=== PATIENT | female | born 1985 | race Caucasian/White ===

== ENCOUNTER 2023-01-19 12:27 | Emergency (ER) | payer BC, SELFPAY ==
[2023-01-19 12:44] VITALS: BP 122/82; PULSE 83; RESP 18; O2SAT 98; BMI 28.3
--- NOTE | 2023-01-19 12:52 | ED_ITS ---
HPI - General Adult General Time Seen by Provider: 12:52 Date Seen: 01/19/23 Chief complaint: Unspecified Complaint, Adult Stated complaint: extreme pain Time Seen by Provider: 01/19/23 12:51 History of Present Illness HPI narrative: 37-year-old female with a history of ulcerative colitis presents to the ER today with her with concern for rectal pain. She had developed a thrombosed external hemorrhoid recently. She was seen yesterday in the urgent care and apparently had an incision and with a partial clot extraction. She came back to the urgent care today with uncontrolled pain. She was still found to have a fairly large hemorrhoid with a fair amount of clot. She underwent a 2nd procedure today by Dr. Santiago in the urgent care in [place]. He administered local anesthesia with lidocaine with epi. made an a excision then took out a large amount clot. She was discharged from the Urgent Care with a prescription for Percocet sent electronically to the pharmacy at [facility] in [place]. However while she was in the car on the way home, less than half an hour after leaving the clinic, her local anesthesia wore off and she develops severe burning rectal pain. She felt like the pain was out of proportion for what she expected so came directly here to the ER. She did not have time to go to the pharmacy to fill a prescription. She is not having any other pain. No abdominal pain. No bleeding. No fever. Dr. Santiago called me on the phone. He gave me an update that he did make a more aggressive excision/clot extraction today than was done yesterday but he would have expected this to heal. He would not have expected that this degree of postoperative pain. He notes that there is still a skin tag there and that the patient may ultimately need outpatient follow-up with general surgery to have the excess tissue excised. Related Data Home Medications Medication Instructions Recorded Confirmed folic acid 400 mcg tablet 0.4 mg PO QDAY 01/18/23 01/19/23 hydrocortisone acetate 25 mg 25 mg ME BID 01/18/23 01/19/23 rectal suppository (Anucort-HC) loratadine 10 mg tablet 10 mg PO QDAY 01/18/23 01/19/23 prednisone 5 mg tablet 5 mg PO BID 01/18/23 01/19/23 sulfasalazine 500 mg 2,000 mg PO BID 01/18/23 01/19/23 tablet,delayed release Previous Rx's Medication Instructions Recorded oxycodone 5 mg tablet 5 mg PO Q6H PRN pain #20 tabs 01/19/23 Allergies Allergy/AdvReac Type Severity Reaction Status Date / Time No Known Drug Allergies Allergy Verified 01/19/23 10:03 Exam Narrative: Exam Narrative: Constitutional: Appears well-developed and well-nourished. Alert. Conversant. Non toxic. HENT: Head: Atraumatic. Nose: Nose normal. Mouth/Throat: Oral mucosa is clear and moist. no trismus. Eyes: Conjunctivae normal. EOM normal. Pupils equal, round, and reactive to light. No scleral icterus. Neck: Normal range of motion. Neck supple. No tracheal deviation present. Cardiovascular: Normal rate, regular rhythm. Pulmonary/Chest: Effort normal. No stridor. No respiratory distress. Abdominal: Soft. No distension. No mass. No tenderness. No rebound. No guarding. Rectal: Performed with female butting saw operator. She has a 2 x 3 cm ovoid external hemorrhoid. There is roughly a 2 cm linear incision on the upper surface of the hemorrhoid. It appears as though clots have been extracted. No active bleeding. I do not see much visual retained clots at this time. No surrounding erythema. No purulent drainage. No active bleeding. Internal rectal exam deferred due to discomfort. After topical anesthesia with 2% lidocaine, an minimal improvement in pain. After local injection of 5 mL of 0.25% bupivacaine, good anesthesia achieved. Musculoskeletal: RUE: Normal range of motion. No tenderness. No deformity LUE: Normal range of motion. No tenderness. No deformity RLE: Normal range of motion. No edema. No tenderness. No deformity LLE: Normal range of motion. No edema. No tenderness. No deformity Lymph: No cervical adenopathy. Neurological: Alert and oriented to person, place, and time. Normal strength. CN II-VII intact. No sensory deficit. GCS eye subscore is 4. GCS verbal subscore is 5. GCS motor subscore is 6. Normal coordination Skin: Skin is warm and dry. No rash noted. No pallor. Normal capillary refill. Psychiatric: Normal mood. Normal affect. Const: Vital Signs, click to edit/add: Vital Signs - 24 hr 01/19/23 12:44 01/19/23 14:06 Pulse Rate 81 Pulse Rate [Right Pulse Oximeter] 83 Respiratory Rate 18 20 Blood Pressure 117/74 Blood Pressure [Ri ght Upper Arm] 122/82 Pulse Oximetry 98 98 Oxygen Delivery Me thod Room Air Course Vital Signs Vital signs: Initial Vital Signs Temperature Source Temporal Artery Scan 01/19/23 12:44 Pulse Rate 83 01/19/23 12:44 Respiratory Rate 18 01/19/23 12:44 Blood Pressure 122/82 01/19/23 12:44 Blood Pressure Mean 95 01/19/23 12:44 Blood Pressure Position Sitting 01/19/23 12:44 Pulse Oximetry 98 01/19/23 12:44 Oxygen Delivery Method Room Air 01/19/23 12:44 Vital Signs Pulse Rate 83 01/19/23 12:44 Respiratory Rate 18 01/19/23 12:44 Blood Pressure 122/82 01/19/23 12:44 Pulse Oximetry 98 01/19/23 12:44 Oxygen Delivery Method Room Air 01/19/23 12:44 Pulse Rate 81 01/19/23 14:06 Respiratory Rate 20 01/19/23 14:06 Blood Pressure 117/74 01/19/23 14:06 Pulse Oximetry 98 01/19/23 14:06 Oxygen Delivery Method Room Air 01/19/23 12:44 Medical Decision Making MDM Narrative Medical decision making narrative: 37-year-old female with a history of UC presents to the ER today after being seen in the clinic this morning for thrombosed external hemorrhoid. She had incision and clot extraction done in clinic and came to the ER because of uncontrolled pain after local anesthetic wore off. She had not been able to get to her pharmacy to fill her oxycodone prescription. Here in the ER she does have evidence for an ongoing hemorrhoid. No obvious evidence for recurrent thrombosis and no evidence for any other infection, perirectal abscess, or any clear other complication. She did not achieve much analgesia from topical lidocaine. We were able to give her pain relief with repeat low confirm infiltration of local anesthetic-5 mL of 0.25% bupivacaine. Sterile prep and technique were used. Were able to get through to the surgeon in surgery clinic. She will need outpatient follow-up in the clinic and likely will need a definitive hemorrhoid surgery. She has an appointment [facility] surgery Clinic in 2 days on 01/21 at 9:00 a.m.. Discussed pain management at home with stool softeners, Sitz baths, opiates as needed. She understands opiate precautions. Questions answered. Discharge Plan Discharge Clinical Impression: Thrombosed external hemorrhoid Patient Disposition: Home, Self-Care Instructions: Hemorrhoids (DC) Additional Instructions: Please perform your soaks and Sitz baths as recommended by Dr. Santiago. Yours Percocet if needed for pain. Be careful because Percocet can cause drowsiness, dizziness, and can be addictive. Use stool softeners to keep her stool soft. You have an appointment on Sunday 01/21 at 9:00 a.m. in the surgery Clinic here at [facility] with Dr. Martinez. Prescriptions: No Action hydrocortisone acetate [Anucort-HC] 25 mg suppository 25 mg ME BID sulfasalazine 500 mg tablet,delayed release (DR/EC) 2,000 mg PO BID prednisone 5 mg tablet 5 mg PO BID folic acid 400 mcg tablet 0.4 mg PO QDAY loratadine 10 mg tablet 10 mg PO QDAY oxycodone 5 mg tablet 5 mg PO Q6H PRN (Reason: pain) Qty: 20 0RF Follow Up/Referrals: Provider,Not a Local [Primary Care Provider] - Stand Alone Forms: fintonic Info Instructions
[2023-01-19] MEDS: lidocaine HCL 2 % JELLY (TOP) STERILE 6 ML TOPICAL (13:44)
[2023-01-19] MEDS: OxyCODONE/APAP 5-325 TABLET 1 TAB PO (14:05)
[2023-01-19 14:06] VITALS: BP 117/74; PULSE 81; RESP 20; O2SAT 98
[2023-01-19] MEDS: BUPIVACAINE 0.25% 30 ML 5 ML INJECTION ×2 (14:36→14:49)
== END 2023-01-19 14:44 | disposition home or self-care (01) ==
PROVIDERS: Emergency Provider Emergency Medicine
DX: K64.5 Perianal venous thrombosis (principal)
CPT/HCPCS: 99283; 99284; A9270; J0665

== ENCOUNTER 2023-01-22 12:18 | Day surgery (SDC) | payer BC, SELFPAY ==
[2023-01-22] VITALS (11 sets, daily range): BP systolic 103–125; BP diastolic 61–86; PULSE 60–84; RESP 12–20; TEMP 36.4–37.1; O2SAT 96–100; BMI 28.7
[2023-01-22 12:39] LABS: Ur HCG Qualitative* Negative (Negative)
[2023-01-22] MEDS: LACTATED RINGERS 1000 ML 1,000 ML 100 ML IV ×2 (12:55→13:44)
--- NOTE | 2023-01-22 13:02 | W.ANESCHARGE ---
Anesthesia Charges Start Date/Time Anesthesia Start Date: 01/22/23 Anesthesia Start Time: 13:26 Stop Date/Time Anesthesia Stop Date: 01/22/23 Anesthesia Stop Time: 14:11
[2023-01-22] MEDS: BUPIVACAINE 0.25% 30 ML INJECTION (13:59)
[2023-01-22] MEDS: BUPIVACAINE LIPOSOME 133 MG/10 ML INJ INFILTRATI (13:59)
--- NOTE | 2023-01-22 14:07 | PM.GSPRC ---
Operative Note Pre-op diagnosis: 1. Thrombosed external hemorrhoid x2 s/p I&D x2. Post-op diagnosis: Same Type of Procedure: 1. 2 quadrant hemorrhoidectomy. Indications: 37-year-old female with history of ulcerative colitis was seen in clinic with perianal pain that started approximately 3-4 days ago. Patient's pain was getting increasingly more severe and she presented to urgent care. At urgent care she was diagnosed with a thrombosed hemorrhoid and underwent I&D with clot removal. Postprocedure her pain was getting increasingly worse and the following day she presented to her primary care doctor for follow-up. Her primary care doctor repeated her I&D and removed more clot from a thrombosed hemorrhoid. Postprocedure patient continued to have a lot of pain and the pain was severe that she needed to take narcotic pain medication. She was then seen in our surgery clinic. On clinical exam she was found to have a dillon sized thrombosed external hemorrhoid anterior midline with visible I&D incision. This is edematous and contained clot. There were no areas of necrosis or ulceration. There is also a smaller thrombosed external hemorrhoid left posterior laterally. Given patient's clinical history and her physical exam, conservative approach versus external hemorrhoidectomy were discussed with the patient. The procedure was discussed in detail, and the risks associated procedure including infection, bleeding, temporary incontinence, and future recurrence of hemorrhoids were all discussed with the patient. Patient elected to proceed with 2 quadrant hemorrhoidectomy. Procedure Description: After discussing the risks and benefits of the procedure, the patient signed informed consent.? The patient was brought to the operating room. Spinal anesthesia was administered patient was then placed on the operating table in prone position with all pressure points padded. The operative site was then prepped and draped in the usual sterile fashion.? A time-out was then performed. Perianal skin was examined and revealed a thrombosed hemorrhoid anterior midline that was approximately 1.5 x 1 cm and a smaller pea-sized thrombosed hemorrhoid left posterior laterally. Digital rectal exam and anoscopy were also done and revealed mucus and bloody fluid in the anal canal. There were mild mucosal ulcerations noted in the anal canal. We then proceeded with 2 quadrant hemorrhoidectomy. I first started with anterior midline hemorrhoidectomy. An elliptical incision was made with a needle tip electrocautery from the anoderm up into the anal canal just above the dentate line. Careful dissection of the hemorrhoid complex was done in the plane between the internal anal sphincter and the submucosal vascular plexus up to just above the dentate line in each quadrant described above. Small clots and edema were noted in submucosal plexus. Having established the proper plane, the hemorrhoidal tissue was then excised with the Ligasure device and sent to Pathology for analysis. Care was taken to preserve mucosa for a tension-free closure. The internal sphincter fibers were visualized at the base of the wound and were intact. The wound was closed in a running locked manner starting at the apex (proximal aspect of elliptical excision) with 3-0 chromic suture, coming out to the anoderm and then running back up in a simple fashion and tying down at the apex. Hemostasis was excellent. The external hemorrhoid was similarly excised left posterior laterally. The incision was closed with a running 3-0 chromic suture. Hemostasis was achieved with pressure. A mixture of Exparel and Marcaine was then injected for bilateral pudendal nerve block and around surgical incisions. Sterile dressings were then applied outside of the anus. ? The patient was then woken and transported to the recovery area in stable condition. ? The patient tolerated the procedure well. Findings: Thrombosed external hemorrhoids with clot in submucosal plexus. Anesthesia: local and spinal Surgeon: Cheryl Duran MD Estimated blood loss (mL): 5 Condition: stable Disposition: PACU Date of procedure: 01/22/23
--- NOTE | 2023-01-22 14:12 | W.ANESCHARGE ---
Anesthesia Charges Start Date/Time Anesthesia Start Date: 01/22/23 Anesthesia Start Time: 13:26 Stop Date/Time Anesthesia Stop Date: 01/22/23 Anesthesia Stop Time: 14:11
[2023-01-22] MEDS: OXYCODONE 5 MG TABLET PO (15:34)
== END 2023-01-22 15:38 | disposition home or self-care (01) ==
PROVIDERS: Visit Provider Surgery
PROC: (CPT 46320; principal; 2023-01-22 13:30)
DX: K64.5 Perianal venous thrombosis (principal); K62.89 Other specified diseases of anus and rectum
CPT/HCPCS: 46320; 00902; 81025; 88304; A9270; C9290; J0665; J1100; J2250; J2405; J2704; J3010; J7120

== ENCOUNTER 2023-11-20 15:39 | Outpatient (CLI) | payer BC, SELFPAY ==
--- OUTSIDE RECORDS SUMMARY | 2023-11-20 15:42 | XMS_ITS | Clinical Summary ---
Author Organization [employer] Address [place], [place] [address] Care Team Providers Care Setup Operator Name Role Phone Pcp, No Primary Care Provider Unavailabl e Allergies Active Allergy Reactions Criticality Noted Date Comments Blood-Group Specific Substance Other - Describe In Comment Field 02/28/2014 Patient has probable passive anti-D. Blood product orders may be delayed. Draw 1 red and 2 purple tubes for all Type and Screen/ RBC product orders. Medications Medication Sig Dispensed Refills Start Date End Date Status multivitamin-folic acid 0.4 mg (MULTIPLE VITAMINS DAILY) tablet Take 1 tablet by mouth once daily. Active Dapsone 5 % topical gel Apply topically to affected area(s). 01/28/2017 Active Doxycycline Monohydrate (VIBRAMYCIN) 50 mg capsule Take by mouth. 07/31/2017 Active folic acid 1 mg tablet Take 1 tablet by mouth. 03/05/2017 Active sulfaSALAzine (AZULFIDINE EN-TAB) 500 mg extended-release tablet Take 2,000 mg by mouth. 02/05/2018 Active Active Problems Problem Noted Date Diagnosed Date Missed 02/24/2014 care and examination of lactating mot her 08/15/2011 Normal delivery 08/14/2011 Supervision of normal first 08/14/2011 Resolved Problems Problem Noted Date Diagnosed Date Resolved Date Missed 04/17/2010 08/15/2011 Immunizations Name Administration Dates Next Due AMB Influenza, IIV4 PF (=>6 mos Flulaval,Fluzone Fluarix)(Flu Clinic Only) 03/02/2019 Influenza, IIV4 03/02/2023,01/03/2022 Social History Tobacco Use Types Packs/Day Years Used Date Smoking Tobacco: Never Smokeless Tobacco: Never Tobacco Cessation:Counseling Given: Yes Alcohol Use Standard Drinks/Week Comments No 0 (1 standard drink = 0.6 oz pur e alcohol) Sex and Gender Information Value Date Recorded Sex Assigned at Not on file Gender Identity Not on file Sexual Orientation Not on file Obstetrics History Para Term AB IAB SAB Ectopic Multiple Livin g Live Births 2 1 1 1 0 1 0 0 1 1 Date Outcome GA Total Labor Labor/2nd/3rd Weight Sex Type Anes PTL Jenni A1 A5 Name Clin 0 SAB 10w 0d SPONTA NEOUS Genera l N Decea sed 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:D & C 2011 Term 41w 0d 3.28 kg (7 lb 3.7 oz) F Vag 8 9 PRYTZ ,BABY GIRL Delivery Location:[facility] Last Filed Vital Signs Vital Sign Reading Time Taken Comments Blood Pressure 121/80 07/22/2018 11:02 AM CDT Pulse 77 07/22/2018 11:02 AM CDT Temperature 36.6 ??C (97.8 ??F) 02/26/2018 1:54 PM CD T Respiratory Rate 14 02/26/2018 1:54 PM CDT Oxygen Saturation 96% 07/22/2018 11:02 AM CDT Inhaled Oxygen Concentration - - Weight 76.7 kg (169 lb 1.6 oz) 07/22/2018 11:02 AM CDT Height 158.8 cm (5' 2.5) 02/26/2018 1:54 PM CDT Body Mass Index 30.44 02/26/2018 1:54 PM CDT Plan of Treatment Health Maintenance Due Date Last Done Comments Tdap 1996 Depression screening for age 12+ 1997 HIV for age 15-65 2000 Hepatitis C screening for ag e 18-79 2003 Tetanus booster 2005 Pap test for age 21-65 2006 BMI (ht and wt on same day) for age 18+ 02/26/2019 02/26/2018 COVID-19 vaccine series ( season) 2022 03/18/2021, 08/17/2020, 07/20/2020 Influenza for age 9-49 12/27/2023 , 01/03/2022, 03/02/2019 Pneumococcal series for age 6-64 Aged Out No longer eligible b ased on patient's age to complete this topic Advance Directives * Full Code (Latest Code Status on File) Date Activated Date Inactivated Comments 02/28/2014 7:54 AM 02/28/2014 1:39 PM * Full Code Date Activated Date Inactivated Comments 02/04/2013 1:42 PM 02/05/2013 2:29 AM * Full Code Date Activated Date Inactivated Comments 08/14/2011 8:10 AM 08/16/2011 4:54 PM * Full Code Date Activated Date Inactivated Comments 08/13/2011 8:16 AM 08/14/2011 8:10 AM * Full Code Date Activated Date Inactivated Comments 08/13/2011 8:14 AM 08/13/2011 8:16 AM Care Teams Setup Operator Relationship Specialty Start Date End Date Pcp, No . PCP - General 03/02/23
--- OUTSIDE RECORDS SUMMARY | 2023-11-20 15:42 | XMS_ITS | Continuity of Care Document ---
Author Organization [facility] Address [address] [address] [place] [address] Phone Care Team Providers Care Paper Supervisor Name Role Phone Edstrom Mary ESPARZA Unavailable Unavailable Allergies, Adverse Reactions, Alerts Substance Reaction Status Criticality No Known Allergies Active No Inform ation Medications Medication Instructions Dosage Effective Dates (start - stop) Status Comments Remicade 100 mg intravenous solution Administer Remicade 10mg/kg every four weeks, infuse by IV route - Active Claritin 10 mg tablet take 1 tablet by O RAL route every day as needed 10 MG - Active Procedures Procedure Date Remicade Per 10 Mg IV Infusion Up To 1 Hour Routine Serum Collection Remicade Per 10 Mg IV Infusion Up To 1 Hour Routine Serum Collection IV Infusion Up To 1 Hour Remicade Per 10 Mg Routine Serum Collection Offic/outpt E&m Estab Mod-hi 2 Remicade Per 10 Mg IV Infusion Up To 1 Hour Remicade Per 10 Mg Remicade Per 10 Mg IV Infusion Up To 1 Hour Remicade Per 10 Mg IV Infusion Up To 1 Hour Offic/outpt E&m Estab Low-mod Remicade Per 10 Mg IV Infusion Up To 1 Hour IV Infusion Up To 1 Hour Each Additional Hour Remicade Per 10 Mg Remicade Per 10 Mg Remicade Per 10 Mg Remicade Per 10 Mg IV Infusion Up To 1 Hour Each Additional Hour Remicade Per 10 Mg Remicade Per 10 Mg IV Infusion Up To 1 Hour Each Additional Hour Venofer Iv Infus Therap/dx-by Phys; To Venofer Iv Infus Therap/dx-by Phys; To Venofer Iv Infus Therap/dx-by Phys; To Venofer Iv Infus Therap/dx-by Phys; To Venofer Iv Infus Therap/dx-by Phys; To Routine Serum Collection Established Level 4 Routine Serum Collection Colonoscopy Flex; W/bx 1/mx Level Iv-surg Path Gross/micro cancelled appt Routine Serum Collection Established Level 3 Routine Serum Collection Routine Serum Collection Iv Infus Therap/dx-by Phys; To Venofer Iv Infus Therap/dx-by Phys; To Venofer Iv Infus Therap/dx-by Phys; To Venofer Iv Infus Therap/dx-by Phys; To Venofer Established Level 3 Colonoscopy Flex; Dx (sep Pro) Routine Serum Collection Iron Iron Binding Capacity Routine Serum Collection C-reactive Prot Comp Metabolic Panel Bld Ct; Hg/pltlt Ct Auto/compl Offic/outpt E&m New Mod Sever New Level 3 Advance Directives Directive Yes / No Effective Date File Name No Information Encounters Encounter Description Practice Location Reason(s) For Visit Diagnoses Date Provider Providers Copied on Encounter [facility], [address] [address], [place], [id number], [place] tel:[phone] [facility] No Information 4 Domenica Hernandez. [address], [id number], [place]. tel:[phone] [facility], [address] [address], [place], [address], [place] tel:[phone] [facility] [place] Ulcerative colitis, unspecified, without complications 4 Deborah Loaiza. [address], [id number], [place]. tel:[phone] Referring Provider: Referral Self, USE FOR SELF REFERRALS. [facility], [address] [address], [place], [address], [place] tel:[phone] [facility] Ulcerative colitis, unspecified, without complicationsE levation of levels of liver transaminase levels 4 Jimmy Jiang. [address], [id number], [place]. tel:[phone] Referring Provider: Referral Self, USE FOR SELF REFERRALS. [facility], [address] [address], [place], [address], [place] tel:[phone] [facility] [place] Ulcerative colitis, unspecified, without complications 4 Jimmy Jiang. [address], [id number], [place]. tel:[phone] [facility], [address] [address], [place], [address], [place] tel:[phone] [facility] Elevated transaminase level 4 Jimmy Jiang. [address] [place] [address], [id number], [place]. tel:[phone] [facility], [address] [address], [place], [address], [place] tel:[phone] [facility] [place] Ulcerative colitis, unspecified, without complications 4 Geronimo Young. [address] [place] [address], [id number], [place]. tel:[phone] Referring Provider: Referral Self, USE FOR SELF REFERRALS. [facility], [address] [address], [place], [address], [place] tel:[phone] [facility] Ulcerative colitis, unspecified, without complications 4 Jimmy Jiang. [address] [place] [address], [id number], [place]. tel:[phone] Referring Provider: Referral Self, USE FOR SELF REFERRALS. [facility], [address] [address], [place], [address], [place] tel:[phone] [facility] Ulcerative colitis, unspecified, without complications 4 Jimmy Jiang. [address] [place] [address], [id number], [place]. tel:[phone] [facility], [address] [address], [place], [address], [place] tel:[phone] [facility] [place] Ulcerative colitis, unspecified, without complications 4 Estella Padron [address] [place] [address], [id number], [place]. tel:[phone] Referring Provider: Referral Self, USE FOR SELF REFERRALS. [facility], [address] [address], [place], [id number], [place] tel:[phone] [facility] No Information August- 4 Jimmy Jiang. 3001 [facility], [address], [id number], [place]. tel:[phone] Referring Provider: Referral Self, USE FOR SELF REFERRALS. [facility], [address] [address], [place], [id number], [place] tel:[phone] [facility] [place] Ulcerative colitis, unspecified, without complications August- 0 4 Jimmy Jiang. [address] [place] [address], [id number], [place]. tel:[phone] Offic/outpt E&m Estab Mod-hi 2 [facility], [address] [address], [place], [id number], [place] tel:[phone] [facility] GI Symptoms or Concerns (chief complaint) Additional Narrative (chief complaint) Ulcerative (chronic) proctitis without complicationsR ectal bleeding Apr-3 0 4 Edwin Putnam. [address] [place] [address], [id number], [place]. tel:[phone] Referring Provider: Referral Self, USE FOR SELF REFERRALS. [facility], [address] [address], [place], [id number], [place] tel:[phone] [facility] [place] Ulcerative colitis, unspecified, without complications Jul-2 4 Carlos Hampton. [address] [place] [address], [id number], [place]. tel:[phone] Referring Provider: Referral Self, USE FOR SELF REFERRALS. [facility], [address] [address], [place], [id number], [place] tel:[phone] [facility] [place] Ulcerative colitis, unspecified, without complications Apr- 4 Jimmy Jiang. [address] [place] [address], [id number], [place]. tel:[phone] [facility], [address] [address], [place], [address], [place] tel:[phone] [facility] [place] Ulcerative colitis, unspecified, without complications 4 Jimmy Jiang. [address]001 [facility], [address], [id number], [place]. tel:[phone] Referring Provider: Referral Self, USE FOR SELF REFERRALS. [facility], [address] [address], [place], [id number], [place] tel:[phone] [facility] [place] Ulcerative colitis, unspecified, without complications 4 Jimmy Jiang. [address] [place] [address], [id number], [place]. tel:[phone] [facility], [address] [address], [place], [id number], [place] tel:[phone] [facility] [place] Ulcerative colitis, unspecified, without complications 4 Hammad Dubose. [address], [id number], [place]. tel:[phone] Referring Provider: Referral Self, USE FOR SELF REFERRALS. [facility], [address] [address], [place], [address], [place] tel:[phone] [facility] [place] Ulcerative colitis, unspecified, without complications 4 Jimmy Jiang. 3001 [facility], [address], [id number], [place]. tel:[phone] Offic/outpt E&m Estab Low-mod [facility], [address] [address], [place], [address], [place] tel:[phone] [facility] GI Symptoms or Concerns (chief complaint) Additional Narrative (chief complaint) Ulcerative colitis, unspecified, without complications b0 4 Jimmy Jiang. [address] [place] [address], [id number], [place]. tel:[phone] Referring Provider: Referral Self, USE FOR SELF REFERRALS. [facility], [address] [address], [place], [address], [place] tel:[phone] [facility] [place] Ulcerative colitis, unspecified, without complications 4 Unique Lau. 3001 [facility], [facility] [address], [place], [address], [place]. tel:[phone] Referring Provider: Referral Self, USE FOR SELF REFERRALS. [facility], [address] [address], [place], [id number], [place] tel:[phone] [facility] [place] Ulcerative colitis, unspecified, without complications 4 Jimmy Jiang. [address]001 [facility], [address], [id number], [place]. tel:[phone] [facility], [address] [address], [place], [address], [place] tel:[phone] [facility] Ulcerative colitis, unspecified, without complications 4 Jimmy Jiang. [address] [facility], [facility] [address], [place], [id number], [place]. tel:[phone] [facility], [address] [address], [place], [address], [place] tel:[phone] [facility] [place] Ulcerative colitis, unspecified, without complications 4 Francis Burleson. [address] [facility], [facility] [address], [place], [id number], [place]. tel:[phone] Referring Provider: Referral Self, USE FOR SELF REFERRALS. [facility], [address] [address], [place], [address], [place] tel:[phone] [facility] [place] Ulcerative colitis, unspecified, without complications 3 Jimmy Jiang. [address] [facility], [facility] [address], [place], [id number], [place]. tel:[phone] [facility], [address] [address], [place], [id number], [place] tel:[phone] [facility] [place] Ulcerative colitis, unspecified, without complications 3 Robert Artis. [address] [place] [address], [address], [id number], [place]. tel:[phone] Referring Provider: Referral Self, USE FOR SELF REFERRALS. [facility], [address] [address], [place], [address], [place] tel:[phone] [facility] [place] Ulcerative colitis, unspecified, without complications 3 Jimmy Jiang. [address] [place] [address], [id number], [place]. tel:[phone] [facility], [address] [address], [place], [id number], [place] tel:[phone] [facility] [place] Ulcerative colitis, unspecified, without complications 3 Janis Baer. [address] [place] [address], [id number], [place]. tel:[phone] Referring Provider: Referral Self, USE FOR SELF REFERRALS. [facility], [address] [address], [place], [address], [place] tel:[phone] [facility] [place] Ulcerative colitis, unspecified, without complications 3 Jimmy Jiang. [address] [place] [address], [id number], [place]. tel:[phone] [facility], [address] [address], [place], [id number], [place] tel:[phone] [facility] [place] Iron deficiency anemia, unspecified 3 Jimmy Jiang. [address] [place] [address], [id number], [place]. tel:[phone] [facility], [address] [address], [place], [address], [place] tel:[phone] [facility] [place] Iron deficiency anemia, unspecifiedUlc erative colitis, unspecified, without complications Nov-0 1-202 3 Geronimo Young. [address] [place] [address], [id number], [place]. tel:[phone] Referring Provider: Referral Self, USE FOR SELF REFERRALS. [facility], [address] [address], [place], [address], [place] tel:[phone] [facility] [place] Iron deficiency anemia, unspecified Oct-3 0-202 3 Guerrero Cramer. [address] [place] [address], [id number], [place]. tel:[phone] Referring Provider: Referral Self, USE FOR SELF REFERRALS. [facility], [address] [address], [place], [address], [place] tel:[phone] [facility] [place] Iron deficiency anemia, unspecified Oct-2 7- 3 Hoa Mckeon. [address] [place] [address], [id number], [place]. tel:[phone] Referring Provider: Referral Self, USE FOR SELF REFERRALS. [facility], [address] [address], [place], [id number], [place] tel:[phone] [facility] [place] Iron deficiency anemia, unspecified Oct-2 5- 3 Carlos Hampton. [address] [place] [address], [id number], [place]. tel:[phone] Referring Provider: Referral Self, USE FOR SELF REFERRALS. [facility], [address] [address], [place], [address], [place] tel:[phone] [facility] [place] Iron deficiency anemia, unspecified Oct-2 3-202 3 Chase Young. [address] [place] [address], [id number], [place]. tel:[phone] Referring Provider: Referral Self, USE FOR SELF REFERRALS. [facility], [address] [address], [place], [address], [place] tel:[phone] [facility] Iron deficiency anemia, unspecified Jan- 0- 3 Jimmy Jiang. [address] [place] [address], [address], [id number], [place]. tel:[phone] [facility], [address] [address], [place], [id number], [place] tel:[phone] [facility] Iron deficiency anemia, unspecifiedUlc erative (chronic) proctitis without complications Jan- 3 Jimmy Jiang. [address] [place] [address], [address], [id number], [place]. [phone] Referring Provider: Referral Self, USE FOR SELF REFERRALS. [facility], [address] [address], [place], [id number], [place] tel:[phone] [facility] Ulcerative colitis, unspecified, without complications Dec- 3 Jimmy Jiang. [address] [place] [address], [id number], [place]. [phone] Established Level 4 [facility], [address] [address], [place], [id number], [place] tel:[phone] [facility] GI Symptoms or Concerns (chief complaint) Additional Narrative (chief complaint) Iron deficiency anemia, unspecifiedUlc erative (chronic) proctitis without complications Dec- 3 Jimmy Jiang. [address] [place] [address], [id number], [place]. tel:[phone] Referring Provider: Referral Self, USE FOR SELF REFERRALS. [facility], [address] [address], [place], [address], [place] tel:[phone] [facility] Ulcerative colitis, unspecified, without complications 3 Jimmy Jiang. [address] [place] [address], [address], [id number], [place]. tel:[phone] Referring Provider: Referral Self, USE FOR SELF REFERRALS. [facility], [address] [address], [place], [address], [place] tel:[phone] [facility] GI Symptoms or Concerns (chief complaint) Ulcerative colitis, unspecified, without complicationsU lcerative colitis, unspecified, without complications 3 Marie Mercedes. 3001 [facility], [address], [id number], [place]. [phone] Referring Provider: Referral Self, USE FOR SELF REFERRALS. [facility], [address] [address], [place], [id number], [place] tel:[phone] [facility] GI Symptoms or Concerns (chief complaint) No Information 3 Guerrero Cramer. [address], [id number], [place]. [phone] Referring Provider: Referral Self, USE FOR SELF REFERRALS. [facility], [address] [address], [place], [id number], [place] tel:[phone] [facility] Ulcerative (chronic) proctitis without complications 3 Jimmy Jiang. [address], [id number], [place]. tel:[phone] [facility], [address] [address], [place], [id number], [place] tel:[phone] [facility] Ulcerative colitis, unspecified, without complications 3 Jimmy Jiang. [address], [id number], [place]. tel:[phone] Referring Provider: Referral Self, USE FOR SELF REFERRALS. Established Level 3 [facility], [address] [address], [place], [address], [place] tel:[phone] [facility] GI Symptoms or Concerns (chief complaint) Additional Narrative (chief complaint) Ulcerative colitis, unspecified, without complications Dec- 2 Jimmy Jiang. [address], [id number], [place]. tel:[phone] Referring Provider: Referral Self, USE FOR SELF REFERRALS. [facility], [address] [address], [place], [address], [place] tel:[phone] [facility] Ulcerative colitis, unspecified, without complications Dec- 2 Jimmy Jiang. [address] [facility], [address], [id number], [place]. tel:[phone] Referring Provider: Referral Self, USE FOR SELF REFERRALS. [facility], [address] [address], [place], [id number], [place] tel:[phone] [facility] No Information 2 Marquez Mercado. [address] [facility], [facility] [address], [place], [id number], [place]. tel:[phone] [facility], [address] [address], [place], [address], [place] tel:[phone] [facility] Ulcerative colitis, unspecified, without complications 2 Jimmy Jiang. [address] [facility], [address], [id number], [place]. tel:[phone] Referring Provider: Referral Self, USE FOR SELF REFERRALS. [facility], [address] [address], [place], [address], [place] tel:[phone] [facility] No Information 2 Joesph Hebert. [address] [facility], [facility] [address], [place], [id number], [place]. tel:[phone] [facility], [address] [address], [place], [address], [place] tel:[phone] [facility] [place] Iron deficiency anemia, unspecified Sep- 1 Hammad Dubose. [address] [facility], [facility] [address], [place], [place], [address], [place]. tel:[phone] Referring Provider: Referral Self, USE FOR SELF REFERRALS. [facility], [address] [address], [place], [id number], [place] tel:[phone] [facility] [place] Iron deficiency anemia, unspecified Sep-2 0-202 1 Marie Mercedes. [address] [facility], [address], [id number], [place]. tel:[phone] Referring Provider: Referral Self, USE FOR SELF REFERRALS. [facility], [address] [address], [place], [id number], [place] tel:[phone] [facility] [place] Iron deficiency anemia, unspecified Sep-1 1 Jairo Serrato. [address] [place] [address], [id number], [place]. tel:[phone] Referring Provider: Referral Self, USE FOR SELF REFERRALS. [facility], [address] [address], [place], [id number], [place] tel:[phone] [facility] [place] Iron deficiency anemia, unspecified Sep-1 1 Chase Young. [address], [id number], [place]. [phone] Referring Provider: Referral Self, USE FOR SELF REFERRALS. [facility], [address] [address], [place], [id number], [place] tel:[phone] [facility] [place] No Information Sep-1 1 Jimmy Jiang. [address] [place] [address], [id number], [place]. tel:[phone] Established Level 3 [facility], [address] [address], [place], [id number], [place] tel:[phone] [facility] GI Symptoms or Concerns (chief complaint) Additional Narrative (chief complaint) Comment (chief complaint) Iron deficiency anemia, unspecified iron deficiency anemia typeUlcerative (chronic) proctitis without complications Aug- 1 Jimmy Jiang. [address] [place] [address], [id number], [place]. tel:[phone] Referring Provider: Referral Self, USE FOR SELF REFERRALS. [facility], [address] [address], [place], [id number], [place] tel:[phone] [facility] Ulcerative (chronic) proctitis without complicationsI marty deficiency anemia, unspecified iron deficiency anemia typeUlcerative (chronic) proctitis without complications 1 Jimmy Jiang. [address] [facility], [facility] [address], [place], [id number], [place]. tel:[phone] Referring Provider: Indy Penaloza, [address] [facility] [address], [place], [address] . tel:[phone] [facility], [address] [address], [place], [id number], [place] tel:[phone] [facility] Anemia, unspecified 1 Edwin Putnam. [address] [facility], [facility] [address], [place], [place], [id number], [place]. tel:[phone] Referring Provider: Referral Self, USE FOR SELF REFERRALS. [facility], [address] [address], [place], [id number], [place] tel:[phone] [facility] Anemia, unspecified type 1 Edwin Putnam. [address] [facility], [facility] [address], [place], [place], [id number], [place]. tel:[phone] [facility], [address] [address], [place], [id number], [place] tel:[phone] [facility] Ulcerative colitis, unspecified, without complications 1 Jimmy Jiang. [address] [facility], [facility] [address], [place], [address], [place]. tel:[phone] Referring Provider: Referral Self, USE FOR SELF REFERRALS. Offic/outpt E&m [facility], [address] [address], [place], [address], [place] tel:[phone] [facility] GI Symptoms or Concerns (chief complaint) Ulcerative colitis without complications, unspecified location 1 SUPRIYAstephanedina JENKINS [place]. [address], [id number], [place]. tel:[phone] Referring Provider: Referral Self, USE FOR SELF REFERRALS. [facility], [address] [address], [place], [address], [place] tel:[phone] [facility] Ulcerative proctitis without complication 1 SUPRIYAstephanedina JENKINS [place]. [address] [facility] [address], [place], [place], [address], [place]. [phone] [facility], [address] [address], [place], [address], [place] tel:[phone] [facility] No Information 1 Joesph Hebert. [address], [id number], [place]. [phone] Family History Family Member Type Diagnosis Age At Onset No Information Immunizations Vaccine Date Status Comments Afluria Qd administered Note: M [facility] bi-directional interface ; Source: Other Registry Afluria Qd administered Note: [facility] bi-directional interface ; Source: Other Registry SARS-COV-2 (COVID-19) vaccin e, mRNA, spike protein, LNP, preservative free, 100 mcg/0.5mL dose or 50 mcg/0.25mL dose administered Note: [facility] bi -directional interface ; Source: Other Registry SARS-COV-2 (COVID-19) vaccin e, mRNA, spike protein, LNP, preservative free, 100 mcg or 50 mcg dose administered Note: [facility] bi-direct ional interface ; Source: Other Registry Influenza, seasonal, injectable administe red Note: [facility] bi- directional interface ; Source: Other Registry SARS-COV-2 (COVID-19) vaccin e, mRNA, spike protein, LNP, preservative free, 100 mcg/0.5mL dose or 50 mcg/0.25mL dose administered Note: [facility] bi -directional interface ; Source: Other Registry SARS-COV-2 (COVID-19) vaccin e, mRNA, spike protein, LNP, preservative free, 100 mcg or 50 mcg dose administered Note: [facility] bi-direct ional interface ; Source: Other Registry SARS-COV-2 (COVID-19) vaccin e, mRNA, spike protein, LNP, preservative free, 100 mcg/0.5mL dose administered Note: [facility] bi-direct ional interface ; Source: Other Registry SARS-COV-2 (COVID-19) vaccin e, mRNA, spike protein, LNP, preservative free, 100 mcg/0.5mL dose or 50 mcg/0.25mL dose administered Note: [facility] bi -directional interface ; Source: Other Registry SARS-COV-2 (COVID-19) vaccin e, mRNA, spike protein, LNP, preservative free, 100 mcg or 50 mcg dose administered Note: [facility] bi-direct ional interface ; Source: Other Registry SARS-COV-2 (COVID-19) vaccin e, mRNA, spike protein, LNP, preservative free, 100 mcg/0.5mL dose administered Note: [facility] bi-direct ional interface ; Source: Other Registry Afluria Qd administered Note: [facility] bi-directional interface ; Source: Other Registry Afluria Qd administered Note: [facility] bi-directional interface ; Source: Other Registry Afluria Qd administered Note: [facility] bi-directional interface ; Source: Other Registry Afluria Qd administered Note: [facility] bi-directional interface ; Source: Other Registry Influenza, seasonal, injectable administe red Note: [facility] bi- directional interface ; Source: Other Registry Afluria Qd administered Note: [facility] bi-directional interface ; Source: Other Registry Afluria Qd administered Note: [facility] bi-directional interface ; Source: Other Registry Influenza, seasonal, injecta ble, preservative free administered Note: [facility] bi-direct ional interface ; Source: Other Registry tetanus toxoid, reduced diphtheria toxoid, and acellular pertussis vaccine, adsorbed administered Note: [facility] b i-directional interface ; Source: Other Registry Influenza, seasonal, injectable administe red Note: [facility] bi- directional interface ; Source: Other Registry Payers Payer name Insurance type Covered republican ID Authoriza timaycol(s) [employer] Of [facility] [id number] [facility] CI Remicade Social History Type Description Quantity Date Captured Comments Alcohol Use Details Unknown Caffeine Use Details Unknown Tobacco Use Status No Information Smoking Status No Information Sex Female Chief Complaint And Reason For Visit No Information Reason For Referral Reason For Referral No Information Plan Of Treatment Date Type Action Status Goal Cervical PAP smear. Due on due Goal Influenza. Due on due Goal DEXA Bone Density Study. Due on due Goal Dermatology - Skin Screening . Due on due Goal Prevnar 20. Due on due Goal Smoking status. Due on due Goal Tdap. Due on due Goal Vitamin D, 25-Hydroxy. Due o n due Goal Colonoscopy. Due on 024 due Goal Influenza. Due on 4 due Goal Prevnar 20. Due on due Goal Smoking status. Due on due Goal Tdap. Due on due Goal DEXA Bone Density Study. Due on due Goal Dermatology - Skin Screening . Due on due Goal Vitamin D, 25-Hydroxy. Due o n due Goal Cervical PAP smear. Due on due Goal Colonoscopy. Due on due Goal DEXA Bone Density Study. Due on due Goal Dermatology - Skin Screening . Due on due Goal Influenza. Due on due Goal Smoking status. Due on due Goal Prevnar 20. Due on due Goal Colonoscopy. Due on due Goal Vitamin D, 25-Hydroxy. Due o n due Goal Cervical PAP smear. Due on due Goal Tdap. Due on due Goal Cervical PAP smear. Due on due Goal Influenza. Due on due Goal Colonoscopy. Due on due Goal Smoking status. Due on due Goal Prevnar 20. Due on due Goal Dermatology - Skin Screening . Due on due Goal Tdap. Due on due Goal DEXA Bone Density Study. Due on due Goal Vitamin D, 25-Hydroxy. Due o n due Goal Smoking status. Due on due Goal Prevnar 20. Due on 24 due Goal Dermatology - Skin Screening . Due on due Goal Cervical PAP smear. Due on due Goal Tdap. Due on due Goal Colonoscopy. Due on 024 due Goal Vitamin D, 25-Hydroxy. Due o n due Goal Influenza. Due on due Goal DEXA Bone Density Study. Due on due Referral Ordered: Administer 5 200mg doses of Venofer by IV route over a 14 day period over at least 15 minutes ordered Referral Ordered: Hep B Surface Ab, Qual Appointment date/timeframe: 01/16/2023 ordered Referral Ordered: CBC W/diff, Whole Blood Appointment date/timeframe: 01/16/2023 ordered Referral Ordered: Ferritin Appointment date/timeframe: 01/16/2023 ordered Referral Ordered: QuantiFERON TB Gold Plus Appointment date/timeframe: 01/16/2023 ordered Referral Ordered: Hep B surface Ag Appointment date/timeframe: 01/16/2023 ordered Referral Ordered: Hep B Core Ab, Tot Appointment date/timeframe: 01/16/2023 ordered Referral Ordered: C Difficile Toxin Gene ARTUR, Rfx To???Cdiff Toxins A+B,EIA Appointment date/timeframe: 12/05/2022 ordered Referral Ordered: Colonoscopy Appointment date/timeframe: 10/12/2020 ordered Referral Ordered: C-Reactive Protein Appointment date/timeframe: -today ordered Referral Ordered: CBC w/diff Appointment date/timeframe: -today ordered Referral Ordered: CMP Appointment date/timeframe: -today ordered Appointment Radha Sloan BOOKED Appointment Radha Sloan BOOKED Appointment Radha Sloan BOOKED Appointment Radha Sloan BOOKED History Of Present Illness Encounter Date Complaint History Of Prese nt Illness GI Symptoms or Concerns 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 Has followed at [facility], [facility], and [facility] in the past). Current treatment:Infliximab 5 mg/kg q 4 weeks (03/11/23 - )Previous treatments: -Prednisone 40 mg taper 12/15/22 - 01/2023-mesalamine enemas (insufficient as monotherapy, and also did not like long-term use)-azathioprine (made skin condition worse)-Oral mesalamine (did not help with dermatitis, and caused side-effects of headaches)-sulfasalazine 4 pills twice per day (4 grams total) and folic acid-mesalamine suppositories nightly (as needed; had been using consistently 12/15/22- 01/2023)Associated conditions:neutrophilic dermatitis (responds to sulfasalazine 4 pills twice per day (4 grams total)Endoscopies:-Colonoscopy 11/24/22 (in context of flare since 06/2022): active proctitis (Carnes score 1), otherwise normal colon (complete exam). -Colonoscopy: 10/12/20: aborted due to poor prep, proctitis (mild to moderate), no evidence of more proximal disease in the left colon-Colonoscopy in 2017 at [facility] with no endoscopically active disease (previously limited to rectum per note)Health maintenance:She believes she is up-to-date on her hepatitis vaccinations. 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 Has followed at [facility], [facility], and [facility] in the past). Current treatment:Infliximab 5 mg/kg q 4 weeks (03/11/23 - )Previous treatments: -Prednisone 40 mg taper 12/15/22 - 01/2023-mesalamine enemas (insufficient as monotherapy, and also did not like long-term use)-azathioprine (made skin condition worse)-Oral mesalamine (did not help with dermatitis, and caused side-effects of headaches)-sulfasalazine 4 pills twice per day (4 grams total) and folic acid-mesalamine suppositories nightly (as needed; had been using consistently 12/15/22- 01/2023)Associated conditions:neutrophilic dermatitis (responds to sulfasalazine 4 pills twice per day (4 grams total)Endoscopies:-Colonoscopy 11/24/22 (in context of flare since 06/2022): active proctitis (Carnes score 1), otherwise normal colon (complete exam). -Colonoscopy: 10/12/20: aborted due to poor prep, proctitis (mild to moderate), no evidence of more proximal disease in the left colon-Colonoscopy in 2017 at [facility] with no endoscopically active disease (previously limited to rectum per note)Health maintenance:She believes she is up-to-date on her hepatitis vaccinations. 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 Has followed at [facility], [facility], and [facility] in the past). Current treatment:Prednisone 40 mg taper since 12/15/22sulfasalazine 4 pills twice per day (4 grams total) and folic acidmesalamine suppositories nightly (as needed; has been using consistently since 12/15/22)Previous treatments: mesalamine enemas (insufficient as monotherapy, and also did not like long-term use)azathioprine (made skin condition worse)Oral mesalamine (did not help with dermatitis, and caused side-effects of headaches)Associated conditions:neutrophilic dermatitis (responds to sulfasalazine 4 pills twice per day (4 grams total)Endoscopies:-Colonoscopy 11/24/22 (in context of flare since 06/2022): active proctitis (Carnes score 1), otherwise normal colon (complete exam). -Colonoscopy: 10/12/20: aborted due to poor prep, proctitis (mild to moderate), no evidence of more proximal disease in the left colon-Colonoscopy in 2017 at [facility] with no endoscopically active disease (previously limited to rectum per note)Health maintenance:She believes she is up-to-date on her hepatitis vaccinations. 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 Has followed at [facility], [facility], and [facility] in the past). Current treatment:sulfasalazine 4 pills twice per day (4 grams total)mesalamine suppositories nightly (as needed; rarely uses)Previous treatments: mesalamine enemas (insufficient as monotherapy, and also did not like long-term use)azathioprine (made skin condition worse)Oral mesalamine (did not help with dermatitis, and caused side-effects of headaches)Associated conditions:neutrophilic dermatitis (responds to sulfasalazine 4 pills twice per day (4 grams total)Most recent colonoscopy: 10/12/20: aborted due to poor prep, proctitis (mild to moderate), no evidence of more proximal disease in the left colonPrior colonoscopy in 2017 at [facility] with no endoscopically active disease (previously limited to rectum per note)Health maintenance:She believes she is up-to-date on her hepatitis vaccinations. She is uncertain about previous pneumococcal vaccinations.COVID-19 vaccination: received 3 dosesFlu vaccine: receives yearlyHPV vaccine: received GI Symptoms or Concerns 36-year- old woman with history of left-sided ulcerative colitis, maintained in remission on sulfasalazine, presents for routine virtual visit. She was last seen by me for a virtual visit about 1 year ago. She continues to do well on sulfasalazine. She has no side effects. Her bowel movements are regular on a daily basis. 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 She requires refills of sulfasalazine. She would prefer a 3 month supply at a time if possible. Most recent labs on 01/07/2022 included kidney function and hepatic function blood tests as well as CBC with differential. These were all reviewed and were normal. 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 Has followed at [facility], [facility], and [facility] in the past). Current treatment:sulfasalazine 4 pills twice per day (4 grams total)mesalamine suppositories nightlyPrevious treatments: mesalamine enemas (insufficient as monotherapy, and also did not like long-term use)azathioprine (made skin condition worse)Oral mesalamine (did not help with dermatitis, and caused side-effects of headaches)Associated conditions:neutrophilic dermatitis (responds to sulfasalazine 4 pills twice per day (4 grams total)Most recent colonoscopy: 10/12/20: aborted due to poor prep, proctitis (mild to moderate), no evidence of more proximal disease in the left colonPrior colonoscopy in 2017 at [facility] with no endoscopically active disease (previously limited to rectum per note)Health maintenance:She believes she is up-to-date on her hepatitis vaccinations. She is uncertain about previous pneumococcal vaccinations.COVID-19 vaccination: received moderna 2 doses in Spring 2020Flu vaccine: receives yearlyHPV vaccine: received GI Symptoms or Concerns Comment 35-year-old tamir craig with a history of ulcerative colitis, limited either to the left colon or perhaps only the rectum, diagnosed in 2012, who presents for follow-up after recent colonoscopy for flare symptoms. She has been followed at [place], [facility], and most recently [facility]. She now wishes to establish care at [facility]. She has been on sulfasalazine 4 pills twice per day, for control of ulcerative colitis and neutrophilic dermatitis. She reports she was off of the sulfasalazine for some time prior to presenting to our clinic, since this was recommended with good control of her disease after several years. After meeting with my colleague on 08/31/21, she restarted sulfasalazine and was more consistent with it on a twice per day basis. She was already feeling some improvement on regular doses of this. She had a colonoscopy with me on 10/12/2020. The prep quality was poor so the procedure was aborted it in the left colon. However there was active inflammat GI Symptoms or Concerns Radha Roberto dhavalmena is a pleasant 35-year-old female with a medical history of ulcerative colitis, currently on sulfasalazine, who presents to establish care.The patient is a good historian. She reports that she was diagnosed with ulcerative colitis in 2012. She believes the initial colonoscopy was done at [facility] initially and then she established care with Gastroenterology at [facility]. She believes the ulcerative colitis was just lower in her colon, so she was treated with mesalamine enemas for approximately 3 years. In 2016, she notes that she developed some skin rash and inflammation. 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 At that time in 2015, she was started on sulfasalazine. She takes 4 g daily. She takes this along with folic acid. She does take 4 tabs in the morning and 4 in the evening. She does report occasi Functional Status Date Functional Assessmen t No Information Instructions Date Instruction Additional Infor saw Infliximab IV per accelerated pr otocol Infliximab IV per accelerated pr otocol 1. Ulcerative coliti s. -continue sulfasalazine 4 pills twice per day. -continue Canasa suppositories nightly, will start tapering as tolerated. - recent labs reviewed. She is due for repeat labs in spring. -will discuss pneumonia vaccines at next in-person visit. -recommended shingles vaccine if she does not find any history of receiving this in the past. - will plan for routine follow-up in 1 year. -will plan for colonoscopy for surveillance purposes in 2022, however may reassess this if more information becomes available that definitively she shows she has only had proctitis in the past. 2. Neutrophilic dermatitis. -continue current dosage of sulfasalazine 4 pills twice a day, which has been helpful for the dermatitis as well. -she will establish care with dermatology in the area. 3. Iron deficiency anemia. - schedule then a for iron infusions. -she will contact me if her anemia symptoms do not improve after infusions. Related to Iron deficiency anemia, unspecified iron deficiency anemia type Assessments Type Assessment Date No Information Patient Care Teams Name Effective Dates (start - stop) Status Members No Information
--- OUTSIDE RECORDS SUMMARY | 2023-11-20 15:42 | XMS_ITS | Clinical Summary ---
[facility] Organization [facility] Address [address], [place] [address] Care Team Providers Care Senior Administrative Associate Name Role Phone Indy Vergara PA-C Primary Care Provider [phone] Source Comments You are receiving this document as you are listed as the primary care provider,follow-up provider, or the patient has been referred to you for consultation.This is in compliance with the Medicare and[facility] EHR Incentive Program,which states Providers who transition their patient to another setting of careor provider of care or refers their patient to another provider of care shouldprovide summary care record for each transition of care or referral. [facility] Allergies No known active allergies Medications Medication Sig Dispensed Refills Start Date End Date Status acyclovir (AKA ZOVIRAX) 400 MG tablet Take one tablet by mouth three times daily for 5 days 30 tablet 0 07/04/2015 Active mesalamine (ROWASA) 4 G enema Insert 60 mL rectally daily at bedtime. 1800 mL 11 02/19/2016 Active folic acid 1 MG tablet Take 1 Tab by mouth daily. 90 Tab 3 06/25/2016 Active sulfaSALAzine (AZULFIDINE) 500 MG tablet Take 4 Tabs by mouth two times a day. 720 Tab 3 01/20/2017 Active dapsone (ACZONE) 5 % gelIndications:Pyost omatitis vegetans Apply topically two times a day. 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 Immunizations Name Administration Dates Next Due 4vHPV (Gardasil) 01/13/2008,09/09/2007, 8 Flu Vac Preserv Free (3+yrs) 03/09/2012,01/22/20 11 Influenza IIV4 (Quadrivalent ) 0.5mL (19493) 03/13/2015 Rho(D) - IG, IM 02/21/2014, 2,12/11/2010, 010 TDAP (ADACEL) 09/25/2011 Family History Medical History Relation Name Comments Alcohol Abuse Father High Blood Pressure Mother Migraines Mother Cancer, Breast Maternal Aunt Heart Disease Maternal Grandfather Diabetes Paternal Grandfather Kidney/Bladder Disease Paternal Grandfather Relation Name Status Comments Father Alive Mother Alive Maternal Aunt Alive Maternal Grandfather Maternal Grandmother Alive Paternal Grandfather Paternal Grandmother Alive Sister 1 Alive Sister 2 Alive Social History Tobacco Use Types Packs/Day Years Used Date Smoking Tobacco: Never Smokeless Tobacco: Never Comments:Quit smoking: Alcohol Use Standard Drinks/Week Comments No 0 (1 standard drink = 0.6 oz pur e alcohol) 1 drink a week Sex and Gender Information Value Date Recorded Sex Assigned at Not on file Gender Identity Not on file Sexual Orientation Not on file Last Filed Vital Signs Vital Sign Reading Time Taken Comments Blood Pressure 128/79 06/25/2016 1:46 PM PATENT AGENT Pulse 74 06/25/2016 1:46 PM PATENT AGENT Temperature 36.6 ??C (97.8 ??F) 04/30/2016 5:38 PM CS T Respiratory Rate 16 06/25/2016 1:46 PM PATENT AGENT Oxygen Saturation 96% 06/16/2016 5:30 PM PATENT AGENT Inhaled Oxygen Concentration - - Weight 71.2 kg (157 lb) 06/25/2016 1:46 PM PATENT AGENT Height 157.5 cm (5' 2) 06/16/2016 4:27 PM PATENT AGENT Body Mass Index 28.72 06/16/2016 4:27 PM PATENT AGENT Plan of Treatment Health Maintenance Due Date Last Done Comments Adult Preventive Visit 2003 HepB (1) 2004 Cervical Cancer Screening Due 09/26/2011, 08/29/2008, 07/07/2007 DTaP/Tdap/Td (2 - Tdap) 09/24/2021 09/25/2011 COVID-19 Vaccine (1 - 2022-2 4 season) 2022 Influenza (#1) 2023 03/13/2015, 03/09/2012, 01/21/2011 Zoster/Shingles (1 of 2) 2035 HPV Vaccine Completed 01/13/2008, 09/09/2007, 07/07/2007 Hep C Screening (Preventive Services) Completed 05/13/2011 HIV Screening (Preventive Services) Completed 06/07/2014, 01/01/2011, 04/09/2010 HepA Aged Out No longer eligi ble based on patient's age to complete this topic Hib Aged Out No longer eligi ble based on patient's age to complete this topic IPV (Polio) Aged Out No longer eligi ble based on patient's age to complete this topic MCV4 Aged Out No longer eligi ble based on patient's age to complete this topic Pneumococcal Aged Out No longer eligi ble based on patient's age to complete this topic Procedures Procedure Name Priority Date/Time Associated Diagnosis Comments HIV ANTIBODY Routine 06/07/2014 4:56 PM PATENT AGENT Special screening examination for other specified viral diseases Screening examination for venereal disease ANATOMICAL PATH LIQUID BASED Routine 09/25/2011 5:10 PM CDT HEPATITIS C ANTIBODY, WITH REFLEX Routine 05/13/2011 4:25 PM PATENT AGENT Pubic bone pain First normal supervision from Last 3 Months or Most Recently Relevant to Health Maintenance Results * HIV ANTIBODY (06/07/2014 4:56 PM PATENT AGENT) HIV 1/HIV 2 Non-React Non-Reacti ve HP CONVERSION 06/07/2014 4:56 PM PATENT AGENT 06/07/2014 10:04 PM PATENT AGENT Narrative HP CONVERSION - 06/07/2014 11:22 PM [place]ENT [place] [address] Estefany Maradiaga APRN, CNM LAB_1 Performing Organization Address City/State/[facility] Co de Phone Number HP CONVERSION * Pap Smear (09/25/2011 5:10 PM CDT) 09/25/2011 5:10 PM CDT Narrative HP CONVERSION - 09/30/2011 4:05 PM CDT Final GYNECOLOGICAL CYTOLOGY REPORT Pathology #: [id number] ?Date Obtained: 09/25/2011 ? Date Received: 09/29/2011 INTERPRETATION/RESULTS: Negative for Intraepithelial Lesion or Malignancy SPECIMEN ADEQUACY: Satisfactory for Evaluation. ??Endocervical cells/transformation zone component present. Verified on 09/30/2011 ??by LITZY MALIN(ASCP) (electronic signature) CLINICAL NOTES: ? LMP: Not Stated, Post - , Weeks after delivery: 6. LIQUID BASED PAP SMEAR SPECIMEN TYPE: ?CERVICAL WITH REFLEX TO HPV IF ASCUS PLEASE NOTE: The pap smear is a screening test designed to aid in the detection of cervical cancer and its precursor lesions. It is not a diagnostic procedure and should not be used as the sole means of detecting cervical cancer. Both false-positive and false-negative reports may occur. ? End of Report Neha Patton Ramírez MONIK ELLIS LAB_1 HP CONVERSION * Hepatitis C Antibody, with Reflex (05/13/2011 4:25 PM PATENT AGENT) Hepatitis C Antibody Non-React Non-Reacti ve HP CONVERSION 05/13/2011 4:25 PM PATENT AGENT 05/13/2011 8:49 PM PATENT AGENT Hailey Colin LAB_1 Performing Organization Address [facility] Co de Phone Number HP CONVERSION from Last 3 Months or Most Recently Relevant to Health Maintenance Care Teams Senior Administrative Associate Relationship Specialty Start Date End Date Indy Vergara PA-C [address] [place] [address] PCP - General 03/09/12
[2023-11-20 20:35] LABS: Chlamydia DNA Amplified* NOT DETECTED (No Detected); GC DNA Amplified* NOT DETECTED (No Detected)
== END 2023-11-20 15:40 | disposition home or self-care (01) ==
PROVIDERS: Visit Provider Registered Nurse
DX: Z01.419 Encounter for gynecological examination (general) (routine) without abnormal findings (principal); N92.6 Irregular menstruation, unspecified; Z13.6 Encounter for screening for cardiovascular disorders; Z13.1 Encounter for screening for diabetes mellitus; Z11.3 Encounter for screening for infections with a predominantly sexual mode of transmission
CPT/HCPCS: 80061; 82947; 84443; 87491; 87591

== ENCOUNTER 2023-11-27 15:48 | Outpatient (CLI) | payer BC, SELFPAY ==
--- OUTSIDE RECORDS SUMMARY | 2023-11-27 15:51 | XMS_ITS | Continuity of Care Document ---
Author Organization [facility] Address [address] [address] [place] [address] Phone Care Team Providers Care Manager Office Services Name Role Phone Edstrom Mary ESPARZA Unavailable [...] Diagnoses Date Provider Providers Copied on Encounter [facility], [address] [address], [place], [id number], [place] tel:[phone] [facility] No Information 4 Domenica Hernandez. [address], [id number], [place]. tel:[phone] [facility], [address] [address], [place], [address], [place] tel:[phone] [facility] Ulcerative colitis, unspecified, without complications 4 Deborah Loaiza. [address], [id number], [place]. tel:[phone] Referring Provider: Referral Self, USE FOR SELF REFERRALS. [facility], [address] [address], [place], [address], [place] tel:[phone] [facility] Ulcerative colitis, unspecified, without complicationsE levation of levels of liver transaminase levels 4 Jimmy Jiang. [address], [id number], [place]. tel:[phone] Referring Provider: Referral Self, USE FOR SELF REFERRALS. [facility], [address] [address], [place], [address], [place] tel:[phone] [facility] Ulcerative colitis, unspecified, without complications 4 Jimmy Jiang. [address], [id number], [place]. tel:[phone] [facility], [address] [address], [place], [address], [place] tel:[phone] [facility] Elevated transaminase level 4 Jimmy Jiang. [address] [place] [address], [id number], [place]. tel:[phone] [facility], [address] [address], [place], [address], [place] tel:[phone] [facility] Ulcerative colitis, unspecified, without complications 4 Geronimo Young. [address] [place] [address], [id number], [place]. tel:[phone] Referring Provider: Referral Self, USE FOR SELF REFERRALS. [facility], [address] [address], [place], [address], [place] tel:[phone] [facility] Ulcerative colitis, unspecified, without complications 4 Jimmy Jiang. [address] [place] [address], [id number], [place]. tel:[phone] Referring Provider: Referral Self, USE FOR SELF REFERRALS. [facility], [address] [address], [place], [address], [place] tel:[phone] [facility] Ulcerative colitis, unspecified, without complications 4 Jimmy Jiang. [address] [place] [address], [id number], [place]. tel:[phone] [facility], [address] [address], [place], [address], [place] tel:[phone] [facility] Ulcerative colitis, unspecified, without complications 4 Estella Padron [address] [place] [address], [id number], [place]. tel:[phone] Referring Provider: Referral Self, USE FOR SELF REFERRALS. [facility], [address] [address], [place], [id number], [place] tel:[phone] [facility] No Information August- 4 Jimmy Jiang. [address] [facility], [address], [id number], [place]. tel:[phone] Referring Provider: Referral Self, USE FOR SELF REFERRALS. [facility], [address] [address], [place], [id number], [place] tel:[phone] [facility] Ulcerative colitis, unspecified, without complications August- 0 4 Jimmy Jiang. [address] [place] [address], [id number], [place]. tel:[phone] Offic/outpt E&m Estab Mod-hi 2 [facility], [address] [address], [place], [id number], [place] tel:[phone] [facility] GI Symptoms or Concerns (chief complaint) Additional Narrative (chief complaint) Ulcerative (chronic) proctitis without complicationsR ectal bleeding Apr-3 0 4 Edwin Putnam. [address] [place] [address], [id number], [place]. tel:[phone] Referring Provider: Referral Self, USE FOR SELF REFERRALS. [facility], [address] [address], [place], [id number], [place] tel:[phone] [facility] Ulcerative colitis, unspecified, without complications Jul-2 4 Carlos Hampton. [address] [place] [address], [id number], [place]. tel:[phone] Referring Provider: Referral Self, USE FOR SELF REFERRALS. [facility], [address] [address], [place], [id number], [place] tel:[phone] [facility] Ulcerative colitis, unspecified, without complications Apr- 4 Jimmy Jiang. [address] [place] [address], [id number], [place]. tel:[phone] [facility], [address] [address], [place], [address], [place] tel:[phone] [facility] Ulcerative colitis, unspecified, without complications 4 Jimmy Jiang. [address] [facility], [address], [id number], [place]. tel:[phone] Referring Provider: Referral Self, USE FOR SELF REFERRALS. [facility], [address] [address], [place], [address], [place] tel:[phone] [facility] Ulcerative colitis, unspecified, without complications 4 Jimmy Jiang. [address] [place] [address], [id number], [place]. tel:[phone] [facility], [address] [address], [place], [address], [place] tel:[phone] [facility] Ulcerative colitis, unspecified, without complications 4 Hammad Dubose. [address], [id number], [place]. tel:[phone] Referring Provider: Referral Self, USE FOR SELF REFERRALS. [facility], [address] [address], [place], [address], [place] tel:[phone] [facility] Ulcerative colitis, unspecified, without complications 4 Jimmy Jiang. [address] [facility], [address], [id number], [place]. tel:[phone] Offic/outpt E&m Estab Low-mod [facility], [address] [address], [place], [address], [place] tel:[phone] [facility] GI Symptoms or Concerns (chief complaint) Additional Narrative (chief complaint) Ulcerative colitis, unspecified, without complications b0 4 Jimmy Jiang. [address] [place] [address], [id number], [place]. tel:[phone] Referring Provider: Referral Self, USE FOR SELF REFERRALS. [facility], [address] [address], [place], [address], [place] tel:[phone] [facility] Ulcerative colitis, unspecified, without complications 4 Unique Lau. [address] [facility], [facility] [address], [place], [id number], [place]. tel:[phone] Referring Provider: Referral Self, USE FOR SELF REFERRALS. [facility], [address] [address], [place], [id number], [place] tel:[phone] [facility] Ulcerative colitis, unspecified, without complications 4 Jimmy Jiang. [address] [facility], [address], [id number], [place]. tel:[phone] [facility], [address] [address], [place], [address], [place] tel:[phone] [facility] Ulcerative colitis, unspecified, without complications 4 Jimmy Jiang. [address] [facility], [facility] [address], [id number], [place]. tel:[phone] [facility], [address] [address], [place], [address], [place] tel:[phone] [facility] Ulcerative colitis, unspecified, without complications 4 Francsi Burleson. [address] [facility], [facility] [address], [place], [id number], [place]. tel:[phone] Referring Provider: Referral Self, USE FOR SELF REFERRALS. [facility], [address] [address], [place], [address], [place] tel:[phone] [facility] [place] Ulcerative colitis, unspecified, without complications 3 Jimmy Jiang. [address] [facility], [facility] [address], [place], [id number], [place]. tel:[phone] [facility], [address] [address], [place], [address], [place] tel:[phone] [facility] [place] Ulcerative colitis, unspecified, without complications 3 Robert Artis. [address] [place] [address], [address], [id number], [place]. tel:[phone] Referring Provider: Referral Self, USE FOR SELF REFERRALS. [facility], [address] [address], [place], [address], [place] tel:[phone] [facility] [place] Ulcerative colitis, unspecified, without complications 3 Jimmy Jiang. [address] [place] [address], [id number], [place]. tel:[phone] [facility], [address] [address], [place], [address], [place] tel:[phone] [facility] Ulcerative colitis, unspecified, without complications 3 Janis Baer. [address] [place] [address], [id number], [place]. tel:[phone] Referring Provider: Referral Self, USE FOR SELF REFERRALS. [facility], [address] [address], [place], [address], [place] tel:[phone] [facility] [place] Ulcerative colitis, unspecified, without complications 3 Jimmy Jiang. [address] [place] [address], [id number], [place]. tel:[phone] [facility], [address] [address], [place], [address], [place] tel:[phone] [facility] Iron deficiency anemia, unspecified 3 Jimmy Jiang. [address] [place] [address], [id number], [place]. tel:[phone] [facility], [address] [address], [place], [address], [place] tel:[phone] [facility] Iron deficiency anemia, unspecifiedUlc erative colitis, unspecified, without complications Nov-0 1-202 3 Geronimo Young. [address] [place] [address], [id number], [place]. tel:[phone] Referring Provider: Referral Self, USE FOR SELF REFERRALS. [facility], [address] [address], [place], [address], [place] tel:[phone] [facility] Iron deficiency anemia, unspecified Oct-3 0-202 3 Guerrero Cramer. [address] [place] [address], [id number], [place]. tel:[phone] Referring Provider: Referral Self, USE FOR SELF REFERRALS. [facility], [address] [address], [place], [address], [place] tel:[phone] [facility] Iron deficiency anemia, unspecified Oct-2 7- 3 Hoa Mckeon. [address] [place] [address], [id number], [place]. tel:[phone] Referring Provider: Referral Self, USE FOR SELF REFERRALS. [facility], [address] [address], [place], [address], [place] tel:[phone] [facility] Iron deficiency anemia, unspecified Oct-2 5- 3 Carlos Hampton. [address] [place] [address], [id number], [place]. tel:[phone] Referring Provider: Referral Self, USE FOR SELF REFERRALS. [facility], [address] [address], [place], [address], [place] tel:[phone] [facility] Iron deficiency anemia, unspecified Oct-2 3-202 3 Chase Young. [address] [place] [address], [id number], [place]. tel:[phone] Referring Provider: Referral Self, USE FOR SELF REFERRALS. [facility], [address] [address], [place], [address], [place] tel:[phone] [facility] Iron deficiency anemia, unspecified Jan- 0- 3 Jimmy Jiang. [address] [place] [address], [address], [id number], [place]. tel:[phone] [facility], [address] [address], [place], [address], [place] tel:[phone] [facility] Iron deficiency anemia, unspecifiedUlc erative (chronic) proctitis without complications Jan- 3 Jimmy Jiang. [address] [place] [address], [address], [id number], [place]. [phone] Referring Provider: Referral Self, USE FOR SELF REFERRALS. [facility], [address] [address], [place], [address], [place] tel:[phone] [facility] Ulcerative colitis, unspecified, without complications Dec- 3 Jimmy Jiang. [address] [place] [address], [id number], [place]. [phone] Established Level 4 [facility], [address] [address], [place], [address], [place] tel:[phone] [facility] GI Symptoms or Concerns (chief complaint) Additional Narrative (chief complaint) Iron deficiency anemia, unspecifiedUlc erative (chronic) proctitis without complications Dec- 3 Jimmy Jiang. [address] [place] [address], [id number], [place]. tel:[phone] Referring Provider: Referral Self, USE FOR SELF REFERRALS. [facility], [address] [address], [place], [address], [place] tel:[phone] [facility] Ulcerative colitis, unspecified, without complications 3 Jimmy Jiang. [address] [place] [address], [address], [id number], [place]. tel:[phone] Referring Provider: Referral Self, USE FOR SELF REFERRALS. [facility], [address] [address], [place], [address], [place] tel:[phone] [facility] GI Symptoms or Concerns (chief complaint) Ulcerative colitis, unspecified, without complicationsU lcerative colitis, unspecified, without complications 3 Marie Mercedes. [address] [facility], [address], [id number], [place]. [phone] Referring Provider: Referral Self, USE FOR SELF REFERRALS. [facility], [address] [address], [place], [address], [place] tel:[phone] [facility] GI Symptoms or Concerns (chief complaint) No Information 3 Guerrero Cramer. [address], [id number], [place]. [phone] Referring Provider: Referral Self, USE FOR SELF REFERRALS. 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 [address], [id number], [place]. tel:[phone] [facility], [address] [address], [place], [id number], [place] tel:[phone] [facility] Ulcerative colitis, unspecified, without complications 3 Jimmy Jiang. [address], [id number], [place]. tel:[phone] Referring Provider: Referral Self, USE FOR SELF REFERRALS. Established Level 3 [facility], [address] [address], [place], [id number], [place] tel:[phone] [facility] GI Symptoms or Concerns (chief complaint) Additional Narrative (chief complaint) Ulcerative colitis, unspecified, without complications Dec- 2 Jimmy Jiang. [address], [id number], [place]. tel:[phone] Referring Provider: Referral Self, USE FOR SELF REFERRALS. [facility], [address] [address], [place], [address], [place] tel:[phone] [facility] Ulcerative colitis, unspecified, without complications Dec- 2 Jimmy Jiang. [address] [facility], [address], [id number], [place]. tel:[phone] Referring Provider: Referral Self, USE FOR SELF REFERRALS. [facility], [address] [address], [place], [address], [place] tel:[phone] [facility] No Information 2 Marquez Mercado. [address] [facility], [facility] [address], [place], [id number], [place]. tel:[phone] [facility], [address] [address], [place], [address], [place] tel:[phone] [facility] Ulcerative colitis, unspecified, without complications 2 Jimmy Jiang. [address] [facility], [address], [id number], [place]. tel:[phone] Referring Provider: Referral Self, USE FOR SELF REFERRALS. [facility], [address] [address], [place], [address], [place] tel:[phone] [facility] No Information 2 Joesph Hebert. [address] [facility], [facility] [address], [place], [id number], [place]. tel:[phone] [facility], [address] [address], [place], [address], [place] tel:[phone] [facility] Iron deficiency anemia, unspecified Sep- 1 Hammad Dubose. [address] [facility], [facility] [address], [place], [place], [address], [place]. tel:[phone] Referring Provider: Referral Self, USE FOR SELF REFERRALS. [facility], [address] [address], [place], [address], [place] tel:[phone] [facility] Iron deficiency anemia, unspecified Sep-2 0-202 1 Marie Mercedes. [address] [facility], [address], [id number], [place]. tel:[phone] Referring Provider: Referral Self, USE FOR SELF REFERRALS. [facility], [address] [address], [place], [address], [place] tel:[phone] [facility] Iron deficiency anemia, unspecified Sep-1 1 Jairo Serrato. [address] [place] [address], [id number], [place]. tel:[phone] Referring Provider: Referral Self, USE FOR SELF REFERRALS. [facility], [address] [address], [place], [address], [place] tel:[phone] [facility] Iron deficiency anemia, unspecified Sep-1 1 Chase Young. [address], [id number], [place]. [phone] Referring Provider: Referral Self, USE FOR SELF REFERRALS. [facility], [address] [address], [place], [address], [place] tel:[phone] [facility] No Information Sep-1 1 Jimmy Jiang. [address] [place] [address], [id number], [place]. tel:[phone] Established Level 3 [facility], [address] [address], [place], [id number], [place] tel:[phone] [facility] GI Symptoms or Concerns (chief complaint) Additional Narrative (chief complaint) Comment (chief complaint) Iron deficiency anemia, unspecified iron deficiency anemia typeUlcerative (chronic) proctitis without complications Aug- 1 Jimmy Jiang. [address] [place] [address], [id number], [place]. tel:[phone] Referring Provider: Referral Self, USE FOR SELF REFERRALS. [facility], [address] [address], [place], [id number], [place] tel:[phone] [facility] Ulcerative (chronic) proctitis without complicationsI marty deficiency anemia, unspecified iron deficiency anemia typeUlcerative (chronic) proctitis without complications 1 Jimmy Jiang. [address] [facility], [facility] [address], [place], [id number], [place]. tel:[phone] Referring Provider: Indy Penaloza, [address] [facility] [address], [place], [address] . tel:[phone] [facility], [address] [address], [place], [id number], [place] tel:[phone] [facility] Anemia, unspecified 1 Edwin Putnam. [address] [facility], [facility] [address], [place], [place], [address], [place]. tel:[phone] Referring Provider: Referral Self, USE FOR SELF REFERRALS. [facility], [address] [address], [place], [id number], [place] tel:[phone] [facility] Anemia, unspecified type 1 Edwin Putnam. [address] [facility], [facility] [address], [place], [place], [address], [place]. tel:[phone] [facility], [address] [address], [place], [id number], [place] tel:[phone] [facility] Ulcerative colitis, unspecified, without complications 1 Jimmy Jiang. [address] [facility], [facility] [address], [place], [address], [place]. tel:[phone] Referring Provider: Referral Self, USE FOR SELF REFERRALS. Offic/outpt E&m [facility], [address] [address], [place], [address], [place] tel:[phone] [facility] GI Symptoms or Concerns (chief complaint) Ulcerative colitis without complications, unspecified location 1 SUPRIYAstephanedina JENKINS [place]. [address], [id number], [place]. tel:[phone] Referring Provider: Referral Self, USE FOR SELF REFERRALS. [facility], [address] [address], [place], [address], [place] tel:[phone] [facility] Ulcerative proctitis without complication 1 SUPRIYAstephanedina JENKINS [place]. [address] [facility] [address], [place], [place], [address], [place]. [phone] [facility], [address] [address], [place], [address], [place] tel:[phone] [facility] No Information 1 Joesph Hebert. [address], [id number], [place]. [phone] Family History Family Member Type Diagnosis Age [...] Registry Payers Payer name Insurance type Covered democrat ID Authoriza timaycol(s) [employer] Of [facility] [id number] [facility] Rem[employer]ade Social History Type Description Quantity [...] proctitis diagnosed in 2012. Has followed at [facility], [facility], and [facility] in the past). Current treatment:Infliximab 5 mg/kg [...] in the left colon-Colonoscopy in 2017 at [facility] with no endoscopically active disease (previously limited to rectum per note)Health maintenance:She believes she is up-to-date on her hepatitis vaccinations. 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 Has followed at [facility], [facility], and [facility] in the past). Current treatment:Infliximab 5 mg/kg [...] in the left colon-Colonoscopy in 2017 at [facility] with no endoscopically active disease (previously limited to rectum per note)Health maintenance:She believes she is up-to-date on her hepatitis vaccinations. 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 Has followed at [facility], [facility], and [facility] in the past). Current treatment:Prednisone 40 mg [...] in the left colon-Colonoscopy in 2017 at [facility] with no endoscopically active disease (previously limited to rectum per note)Health maintenance:She believes she is up-to-date on her hepatitis vaccinations. 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 Has followed at [facility], [facility], and [facility] in the past). Current treatment:sulfasalazine 4 pills [...] the left colonPrior colonoscopy in 2017 at [facility] with no endoscopically active disease (previously limited [...] proctitis diagnosed in 2012. Has followed at [facility], [facility], and [facility] in the past). Current treatment:sulfasalazine 4 pills [...] the left colonPrior colonoscopy in 2017 at [facility] with no endoscopically active disease (previously limited [...] flare symptoms. She has been followed at [facility], [facility], and most recently [facility]. She now wishes to establish care at [facility]. She has been on sulfasalazine 4 pills [...] believes the initial colonoscopy was done at [facility] initially and then she established care with Gastroenterology at [facility]. She believes the ulcerative colitis was just lower in her colon, so she was treated with mesalamine enemas for approximately 3 years. In 2016, she notes that she developed some skin rash and inflammation. She went to [facility] for evaluation and she was found to [...]
--- OUTSIDE RECORDS SUMMARY | 2023-11-27 15:51 | XMS_ITS | Clinical Summary ---
Author Organization [facility] Address [place], [place] [address] Care Team Providers Care Milieu Technician Name Role Phone Pcp, No Primary Care [...] Diagnosed Date Resolved Date Missed 04/17/2010 08/15/2011 Encounters Date Type Department Care Team Description 11/23/2023 Lab Requisition [facility] [phone] Whitley Vicente, HANDLING TECH from Last 3 Months Immunizations Name Administration Dates Next Due AMB [...] Vag 8 9 PRYTZ ,BABY GIRL Delivery Location:[facility] Last Filed Vital Signs Vital Sign [...] ag e 18-79 2003 Tetanus booster 2005 BMI (ht and wt on same day) for age 18+ 02/26/2019 02/26/2018 COVID-19 vaccine series ( season) 2022 03/18/2021, 08/17/2020, 07/20/2020 Influenza for age 9-49 12/27/2023 , 01/03/2022, 03/02/2019 Pap test for age 21-65 11/19/2026 11/20/2023 Pneumococcal series for age 6-64 Aged Out No longer eligible b ased on patient's age to complete this topic Procedures Procedure Name Priority Date/Time Associated Diagnosis Comments LAB TRACKING EVENT Routine 11/20/2023 3: 50 PM CDT HPV THIN PREP Routine 11/20/2023 3:50 PM CDT from Last 3 Months Results * LAB TRACKING EVENT (11/20/2023 3:50 PM CDT) Other (Other) Client Collect / Unknown 11/20/2023 3:50 PM CDT 11/23/2023 3:15 PM CDT Whitley Vicente NP LAB BILL ONLY Performing Organization Address [facility] Co de Phone Number [facility] [address] * HPV HIGH RISK (11/20/2023 3:50 PM CDT) TYPE 16 Negative Negative 11/25/2023 6:24 PM CDT [facility] TYPE 18 Negative Negative 11/25/2023 6:24 PM CDT [facility] OTHER HIGH RISK TYPES Negative Negative 11/25/2023 6:24 PM CDT [facility] Other (Cervical) 11/20/2023 3:50 PM CDT 11/24/2023 1:20 PM CDT Narrative [facility] - 11/25/2023 6:24 PM CDT HPV types 16, 18, 31, 33, 35, 39, 45, 51, 52, 56, 58, 59, 66 and 68 DNA were undetectable or below the pre-set threshold. Methodology: Paco Genet 4800 HPV Test Whitley Vicente NP MICROBIOLOGY Performing Organization Address City/[facility]/ZIP Co de Phone Number [facility] [address] [place] [address], [place] from Last 3 Months Advance Directives * Full Code (Latest Code [...] 8:14 AM 08/13/2011 8:16 AM Care Teams Milieu Technician Relationship Specialty Start Date End Date Pcp, No . PCP - General 03/02/23
--- OUTSIDE RECORDS SUMMARY | 2023-11-27 15:51 | XMS_ITS | Clinical Summary ---
[facility] Organization [facility] Address [address] [address] Care Team Providers Care Documentation Lead Name Role Phone Indy Vergara PA-C Primary Care Provider [phone] Source Comments You are receiving this document as you are listed as the primary care provider,follow-up provider, or the patient has been referred to you for consultation.This is in compliance with the Medicare and[facility] EHR Incentive Program,which states Providers who transition their patient to another setting of careor provider of care or refers their patient to another provider of care shouldprovide summary care record for each transition of care or referral. [facility] Allergies No known active allergies Medications Medication [...] 03/09/2012,01/22/20 11 Influenza IIV4 (Quadrivalent ) 0.5mL (21137) 03/13/2015 Rho(D) - IG, IM 02/21/2014, 2,12/11/2010, [...] Comments Blood Pressure 128/79 06/25/2016 1:46 PM COMMISSIONING MANAGER Pulse 74 06/25/2016 1:46 PM COMMISSIONING MANAGER Temperature 36.6 ??C (97.8 ??F) 04/30/2016 5:38 PM CS T Respiratory Rate 16 06/25/2016 1:46 PM COMMISSIONING MANAGER Oxygen Saturation 96% 06/16/2016 5:30 PM COMMISSIONING MANAGER Inhaled Oxygen Concentration - - Weight 71.2 kg (157 lb) 06/25/2016 1:46 PM COMMISSIONING MANAGER Height 157.5 cm (5' 2) 06/16/2016 4:27 PM COMMISSIONING MANAGER Body Mass Index 28.72 06/16/2016 4:27 PM COMMISSIONING MANAGER Plan of Treatment Health Maintenance Due Date [...] Comments HIV ANTIBODY Routine 06/07/2014 4:56 PM COMMISSIONING MANAGER Special screening examination for other specified viral diseases Screening examination for venereal disease ANATOMICAL PATH LIQUID BASED Routine 09/25/2011 5:10 PM CDT HEPATITIS C ANTIBODY, WITH REFLEX Routine 05/13/2011 4:25 PM COMMISSIONING MANAGER Pubic bone pain First normal supervision from Last 3 Months or Most Recently Relevant to Health Maintenance Results * HIV ANTIBODY (06/07/2014 4:56 PM COMMISSIONING MANAGER) HIV 1/HIV 2 Non-React Non-Reacti ve HP CONVERSION 06/07/2014 4:56 PM COMMISSIONING MANAGER 06/07/2014 10:04 PM COMMISSIONING MANAGER Narrative HP CONVERSION - 06/07/2014 11:22 PM COMMISSIONING MANAGER [place] [address] Estefany Maradiaga APRN, CNM LAB_1 Performing Organization Address City/State/[facility] Co de Phone Number HP CONVERSION * Pap Smear (09/25/2011 5:10 PM CDT) 09/25/2011 5:10 PM CDT Narrative HP CONVERSION - 09/30/2011 4:05 PM CDT Final GYNECOLOGICAL CYTOLOGY REPORT Pathology #: [id number] ?Date Obtained: 09/25/2011 ? Date Received: 09/29/2011 [...] C Antibody, with Reflex (05/13/2011 4:25 PM COMMISSIONING MANAGER) Hepatitis C Antibody Non-React Non-Reacti ve HP CONVERSION 05/13/2011 4:25 PM COMMISSIONING MANAGER 05/13/2011 8:49 PM COMMISSIONING MANAGER Hailey Colin LAB_1 Performing Organization Address [facility] Co de Phone Number HP CONVERSION from Last 3 Months or Most Recently Relevant to Health Maintenance Care Teams Documentation Lead Relationship Specialty Start Date End Date Indy Vergara PA-C [address] [place] [address] PCP - General 03/09/12
--- NOTE | 2023-11-27 16:00 | CRLHL7_ITS ---
For Patients: As a result of the Century Cures Act, medical imaging exams and procedure reports are released immediately into your electronic medical record. You may view this report before your referring provider. If you have questions, please contact your health care provider. INDICATION: Irregular bleeding COMPARISON: none TECHNIQUE: 2D lewis scale and color Doppler images were acquired of the pelvis using a transabdominal and transvaginal approach. FINDINGS: Sonographic images demonstrate a normal size and smooth outer contour of the uterus. Uterus measures 7.4 cm in length by 3.1 cm in AP diameter by 3.7 cm in transverse dimension. The myometrium has a normal uniform echotexture. The endometrial lining appears normal and measures 2.5 mm in composite thickness. Normal position of the IUD within the endometrial canal. The right ovary measures 2.5 x 1.8 x 2.6 cm in size and the left ovary measures 2.6 x 1.5 x 1.9 cm. The ovaries demonstrate normal arterial and venous blood flow on color Doppler analysis. There are no suspicious fluid collections within the cul-de-sac. IMPRESSION: Normal position of the IUD within the endometrial canal. Endometrium measures 2.5 millimeters. No endometrial fluid or uterine fibroid. Dictated by Tod Skelton MD @ 11/27/2023 10:38:16 PM (Electronically Signed)
== END 2023-11-27 15:49 | disposition home or self-care (01) ==
LOC: US 15:49
PROVIDERS: PCP Registered Nurse; Visit Provider Registered Nurse
DX: N92.6 Irregular menstruation, unspecified (principal)
CPT/HCPCS: 76830; 76856

== ENCOUNTER 2024-03-04 14:26 | Outpatient (CLI) | payer BC, SELFPAY ==
--- OUTSIDE RECORDS SUMMARY | 2024-03-04 14:29 | XMS_ITS | Clinical Summary ---
Author Organization [facility] Address [address] [address] Care Team Providers Care Staff Occupational Therapist Name Role Phone Indy Vergara PA-C Primary Care Provider [phone] Source Comments You are receiving this document as you are listed as the primary care provider,follow-up provider, or the patient has been referred to you for consultation.This is in compliance with the Medicare and[facility] EHR Incentive Program,which states Providers who transition their patient to another setting of careor provider of care or refers their patient to another provider of care shouldprovide summary care record for each transition of care or referral. 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 Immunizations Name Administration Dates Next Due 4vHPV (Gardasil) 01/13/2008,09/09/2007, 8 Flu Vac Preserv Free (3+yrs) 03/09/2012,01/22/20 11 Influenza IIV4 (Quadrivalent ) 0.5mL (50305) 03/13/2015 Rho(D) - IG, IM 02/21/2014, 2,12/11/2010, [...] Comments Blood Pressure 128/79 06/25/2016 1:46 PM HAT AND CAP SEWER Pulse 74 06/25/2016 1:46 PM HAT AND CAP SEWER Temperature 36.6 ??C (97.8 ??F) 04/30/2016 5:38 PM CS T Respiratory Rate 16 06/25/2016 1:46 PM HAT AND CAP SEWER Oxygen Saturation 96% 06/16/2016 5:30 PM HAT AND CAP SEWER Inhaled Oxygen Concentration - - Weight 71.2 kg (157 lb) 06/25/2016 1:46 PM HAT AND CAP SEWER Height 157.5 cm (5' 2) 06/16/2016 4:27 PM HAT AND CAP SEWER Body Mass Index 28.72 06/16/2016 4:27 PM HAT AND CAP SEWER Plan of Treatment Health Maintenance Due Date Last Done Comments Adult Preventive Visit 2003 HepB (1) 2004 Cervical Cancer Screening Due 09/26/2011, 08/29/2008, 07/07/2007 DTaP/Tdap/Td (2 - Tdap) 09/24/2021 09/25/2011 COVID-19 Vaccine (1 - 2023-2 5 season) 2023 Influenza (#1) 2023 03/13/2015, 03/09/2012, 01/21/2011 Zoster/Shingles [...] on patient's age to complete this topic RSV Aged Out No longer eligi ble based on patient's age to complete this topic MCV4 Aged Out No longer eligi ble based on patient's age to complete this topic Pneumococcal Aged Out No longer eligi ble based on patient's age to complete this topic Procedures Procedure Name Priority Date/Time Associated Diagnosis Comments HIV ANTIBODY Routine 06/07/2014 4:56 PM HAT AND CAP SEWER Special screening examination for other specified viral diseases Screening examination for venereal disease ANATOMICAL PATH LIQUID BASED Routine 09/25/2011 5:10 PM CDT HEPATITIS C ANTIBODY, WITH REFLEX Routine 05/13/2011 4:25 PM HAT AND CAP SEWER Pubic bone pain First normal supervision from Last 3 Months or Most Recently Relevant to Health Maintenance Results * HIV ANTIBODY (06/07/2014 4:56 PM HAT AND CAP SEWER) HIV 1/HIV 2 Non-React Non-Reacti ve HP CONVERSION 06/07/2014 4:56 PM HAT AND CAP SEWER 06/07/2014 10:04 PM HAT AND CAP SEWER Narrative HP CONVERSION - 06/07/2014 11:22 PM HAT AND CAP SEWER [place] [address] Estefany Maradiaga APRN, CNM LAB_1 HP CONVERSION * Pap Smear (09/25/2011 5:10 PM CDT) 09/25/2011 5:10 PM CDT Narrative HP CONVERSION - 09/30/2011 4:05 PM CDT Final GYNECOLOGICAL CYTOLOGY REPORT Pathology #: [id number] ?Date Obtained: 09/25/2011 ? Date Received: 09/29/2011 [...] may occur. ? End of Report Neha Ramírez APRN, CNM LAB_1 Performing Organization Address [facility] de Phone Number HP CONVERSION * Hepatitis C Antibody, with Reflex (05/13/2011 4:25 PM HAT AND CAP SEWER) Hepatitis C Antibody Non-React Non-Reacti ve HP CONVERSION 05/13/2011 4:25 PM HAT AND CAP SEWER 05/13/2011 8:49 PM HAT AND CAP SEWER Hailey Colin LAB_1 Performing Organization Address [facility] de Phone Number HP CONVERSION from Last 3 Months or Most Recently Relevant to Health Maintenance Care Teams Staff Occupational Therapist Relationship Specialty Start Date End Date Indy Vergara PA-C [address] [place], [place] [id number] [facility] - General 03/09/12
--- OUTSIDE RECORDS SUMMARY | 2024-03-04 14:29 | XMS_ITS | Clinical Summary ---
Author Organization [facility] Address [place], [place] [address] Care Team Providers Care Shoemaker Apprentice Name Role Phone Pcp, No Primary Care [...] Vag 8 9 PRYTZ ,BABY GIRL Delivery Location:[facility] Last Filed Vital Signs Vital Sign Reading [...] 02/26/2019 02/26/2018 COVID-19 vaccine series ( season) 2023 03/18/2021, 08/17/2020, 07/20/2020 Influenza for age 9-49 12/27/2023 3, 01/03/2022, 03/02/2019 Pap test for age 21-65 11/19/2026 11/20/2023 Pneumococcal series for age 6-64 Aged Out No longer eligible b ased on patient's age to complete this topic Procedures Procedure Name Priority Date/Time Associated Diagnosis Comments HPV HIGH RISK Routine 11/20/2023 3:50 PM CDT from Last 3 Months or Most Recently Relevant to Health Maintenance Results * HPV HIGH RISK (11/20/2023 3:50 PM CDT) TYPE 16 Negative Negative 11/25/2023 6:24 PM CDT [facility] TYPE 18 Negative Negative 11/25/2023 6:24 PM CDT [facility] OTHER HIGH RISK TYPES Negative Negative 11/25/2023 6:24 PM CDT [facility] Other (Cervical) 11/20/2023 3:50 PM CDT 11/24/2023 1:20 PM CDT Narrative [facility] - 11/25/2023 6:24 PM CDT HPV types 16, 18, 31, 33, 35, 39, 45, 51, 52, 56, 58, 59, 66 and 68 DNA were undetectable or below the pre-set threshold. Methodology: Paco Genet 4800 HPV Test Whitley Vicente NP MICROBIOLOGY [facility] [address] [place] [id number], from Last 3 Months or Most Recently Relevant to Health Maintenance Advance Directives * Full Code (Latest Code [...] 8:14 AM 08/13/2011 8:16 AM Care Teams Shoemaker Apprentice Relationship Specialty Start Date End Date Pcp, No . PCP - General 03/02/23
== END 2024-03-04 14:27 | disposition home or self-care (01) ==
LOC: NFLDREF 14:27
PROVIDERS: Visit Provider Registered Nurse
DX: Z34.90 Encounter for supervision of normal pregnancy, unspecified, unspecified trimester (principal); Z12.4 Encounter for screening for malignant neoplasm of cervix
CPT/HCPCS: 88141; 88142